=== PATIENT | male | born 1975 | race Caucasian/White ===

== ENCOUNTER 2016-12-04 18:35 | Emergency (ER) | payer SELFPAY ==
[~2016-12-04] VITALS: Ht 165.1 cm; Wt 72.0 kg
[~2016-12-04 18:35] MED LIST: LORA-474 PO; Z.0.NO CURRENT MEDS
[2016-12-04 18:37] VITALS: BP 180/103; PULSE 78; RESP 24; TEMP 97.7; O2SAT 98
[2016-12-04] MEDS ORDERED: SODIUM CHLOR 0.9% 1000 ML INJ 1,000 ML IV SCH (18:50)
[2016-12-04] MEDS ORDERED: MORPHINE SULFATE 4 MG/ML INJ IV PUSH ONE (19:00)
[2016-12-04] MEDS ORDERED: ONDANSETRON HCL 4 MG/2 ML VIAL IVP ONE (19:00)
[2016-12-04 19:19] VITALS: RESP 21; O2SAT 96
--- NOTE | 2016-12-04 19:19 | PD ---
HPI Chief Complaint: Abdominal Pain Time Seen by Provider: 19:16 Travel History International Travel<30 days: No Contact w/Intl Traveler<30days: No Traveled to known affect area: No History of Present Illness HPI 41 yo male that presents to the ED for evaluation of LLQ abdominal pain since 1 hour before coming. Patient states that this happened less than 2 hours ago he denies any chest pain or shortness of breath. Nausea or vomiting. No bowel movement issues. No urinary issues. States that the pain is severe and sharp. Per patient the pain is 8 out of 10. Does not radiate. No history of kidney stones. No history of heavy lifting. No masses. No problems with bowel movements or urine. No allergies to medication. Has not seen anybody for this. No history of surgeries to the abdomen. PFSH Past Surgical History Eye Surgery: Yes (LEFT EYE SURGERY) Social History Alcohol Use: No Tobacco Use: No Substance Use: No Allergies-Medications (Allergen,Severity, Reaction): Coded Allergies: No Known Allergies (Unverified , 11/16/12) Reported Meds & Prescriptions Reported Meds & Active Scripts Active Flomax (Tamsulosin HCl) 0.4 Mg Cap 0.4 Mg PO HS PRN Diclofenac Sodium DR (Diclofenac Sodium) 75 Mg Tabdr 75 Mg PO BID PRN Lortab (Hydrocodone-Acetaminophen) 5-325 Mg Tab 1 Tab PO Q6H PRN Review of Systems Except as stated in HPI: all other systems reviewed are Neg Physical Exam Narrative GENERAL: SKIN: Warm and dry. HEAD: Atraumatic. Normocephalic. EYES: Pupils equal and round. No scleral icterus. No injection or drainage. ENT: No nasal bleeding or discharge. Mucous membranes pink and moist. Tongue is midline. No uvula deviation. NECK: Trachea midline. No JVD. CARDIOVASCULAR: Regular rate and rhythm. No murmurs, S3, S4. RESPIRATORY: No accessory muscle use. Clear to auscultation. Breath sounds equal bilaterally. GASTROINTESTINAL: Abdomen soft, tender with deep palpation on the left lower quadrant especially with deep palpation, nondistended. Hepatic and splenic margins not palpable. MUSCULOSKELETAL: Extremities without clubbing, cyanosis, or edema. No obvious deformities. Full range of motion of the upper and lower extremities bilaterally. 2+ pulses bilaterally. NEUROLOGICAL: Awake and alert. No obvious cranial nerve deficits. Motor grossly within normal limits. Five out of 5 muscle strength in the arms and legs. Normal speech. PSYCHIATRIC: Appropriate mood and affect; insight and judgment normal. Data Data Last Documented VS Vital Signs Date Time Temp Pulse Resp B/P Pulse Ox O2 Delivery O2 Flow Rate FiO2 12/04/16 20:48 20 12/04/16 20:00 100 126/64 99 Room Air 12/04/16 18:37 97.7 Orders Complete Blood Count With Diff (12/04/16 18:50) Comprehensive Metabolic Panel (12/04/16 18:50) Lipase (12/04/16 18:50) Lactic Acid (12/04/16 18:50) Urinalysis - C+S If Indicated (12/04/16 18:50) Ct Abd/Pel W Iv Contrast(Rout) (12/04/16 18:50) Iv Access Insert/Monitor (12/04/16 18:50) Ecg Monitoring (12/04/16 18:50) Oximetry (12/04/16 18:50) Morphine Inj (Morphine Inj) (12/04/16 19:00) Ondansetron Inj (Zofran Inj) (12/04/16 19:00) Sodium Chlor 0.9% 1000 Ml Inj (Ns 1000 M (12/04/16 18:50) Hydromorphone Pf Inj (Dilaudid Pf Inj) (12/04/16 19:45) Ketorolac Inj (Toradol Inj) (12/04/16 19:45) Iohexol 350 Inj (Omnipaque 350 Inj) (12/04/16 20:25) Labs Laboratory Tests Test 12/04/16 12/04/16 19:14 20:44 White Blood Count 14.4 TH/MM3 Red Blood Count 5.63 MIL/MM3 Hemoglobin 17.6 GM/DL Hematocrit 51.1 % Mean Corpuscular Volume 90.7 FL Mean Corpuscular Hemoglobin 31.3 PG Mean Corpuscular Hemoglobin 34.5 % Concent Red Cell Distribution Width 13.0 % Platelet Count 329 TH/MM3 Mean Platelet Volume 9.5 FL Neutrophils (%) (Auto) 59.6 % Lymphocytes (%) (Auto) 31.8 % Monocytes (%) (Auto) 7.2 % Eosinophils (%) (Auto) 0.9 % Basophils (%) (Auto) 0.5 % Neutrophils # (Auto) 8.6 TH/MM3 Lymphocytes # (Auto) 4.6 TH/MM3 Monocytes # (Auto) 1.0 TH/MM3 Eosinophils # (Auto) 0.1 TH/MM3 Basophils # (Auto) 0.1 TH/MM3 CBC Comment DIFF FINAL Differential Comment Sodium Level 142 MEQ/L Potassium Level 4.4 MEQ/L Chloride Level 103 MEQ/L Carbon Dioxide Level 29.8 MEQ/L Anion Gap 9 MEQ/L Blood Urea Nitrogen 14 MG/DL Creatinine 1.06 MG/DL Estimat Glomerular Filtration 78 ML/MIN Rate Random Glucose 111 MG/DL Lactic Acid Level 1.8 mmol/L Calcium Level 9.2 MG/DL Total Bilirubin 0.6 MG/DL Aspartate Amino Transf 40 U/L (AST/SGOT) Alanine Aminotransferase 65 U/L (ALT/SGPT) Alkaline Phosphatase 71 U/L Total Protein 8.4 GM/DL Albumin 4.3 GM/DL Lipase 159 U/L Urine Color LIGHT-YELLOW Urine Turbidity CLEAR Urine pH 6.5 Urine Specific [place] 1.017 Urine Protein NEG mg/dL Urine Glucose (UA) NEG mg/dL Urine Ketones NEG mg/dL Urine Occult Blood NEG Urine Nitrite NEG Urine Bilirubin NEG Urine Urobilinogen LESS THAN 2.0 MG/DL Urine Leukocyte Esterase NEG Urine RBC 2 /hpf Urine WBC LESS THAN 1 /hpf Urine Mucus FEW /lpf Microscopic Urinalysis Comment CULT NOT INDICATED MDM Medical Decision Making Medical Screen Exam Complete: Yes Emergency Medical Condition: Yes Medical Record Reviewed: Yes Interpretation(s) CBC & BMP Diagram 12/04/16 19:14 UA negative LFTs WNL Last Impressions Abdomen/Pelvis CT 12/04/16 1850 Signed Impressions: Service Date/Time: Sunday, December 04, 2016 20:20 - CONCLUSION: 1. 2 mm left ureteropelvic junction stone Luiz Mai MD Differential Diagnosis Acute abdomen versus Abdominal pain versus kidney stone versus diverticulitis versus polynephritis versus herniated versus mass versus perforation Narrative Course 41-year-old male that presents to the ED for evaluation of left lower quadrant abdominal pain. Patient was properly examined and was found to have signs and symptoms consistent with abdominal pain. Labs and imaging ordered. Patient was given IV pain medications and fluids. Labs and imaging showed kidney stone. Other was unremarkable. 2 mm. Patient was pressure. This time patient feels improved. Pain has completely gone. Patient was told that the stone will likely pass on its own. Patient agrees with plan. Patient was given a prescription for Lortab and Flomax as well as diclofenac sodium. Follow with PCP. See ED worsening symptoms. Diagnosis Primary Impression: Kidney stone on left side Patient Instructions: Narcotic given in the ED, General Instructions Departure Forms: Tests/Procedures, Work Release Enter return to work date: December 06, 2016 Additional Instructions: Take medications as prescribed. Follow-up with PCP. See ED for any worsening symptoms. Do not drink or drive while taking pain medication. Apply ice or heat as needed for pain Did not take the Flomax if the stone has passed. Med/Other Pt SpecificInfo: Prescription(s) given Scripts Tamsulosin (Flomax)0.4 Mg Cap0.4 Mg PO HS PRN (Manage Prostate Problems) #15 CAP Ref 0 Prov:Nuvia Rosas MD 12/04/[address] 75 Mg Tabdr75 Mg PO BID PRN (PAIN SCALE 1 TO 10) #20 TAB Prov:Nuvia Rosas MD 12/04/16 Hydrocodone-Acetaminophen (Lortab)5-325 Mg Tab1 Tab PO Q6H PRN (PAIN) #20 TAB Prov:Nuvia Rosas MD 12/04/16 Disposition: 01 DISCHARGE HOME Condition: Stable Wilfredo Phelps December 04, 2016 19:19
[2016-12-04 19:27] LABS: AUTOMATED NEUTROPHIL # 8.6 TH/MM3 (1.8-7.7); BASOPHIL # 0.1 TH/MM3 (0-0.2); BASOPHIL % 0.5 % (0.0-2.0); EOSINOPHIL # 0.1 TH/MM3 (0-0.4); EOSINOPHIL % 0.9 % (0.0-4.0); HEMATOCRIT 51.1 % (39.0-51.0); HEMO FLAGS DIFF FINAL; LYMPH % 31.8 % (9.0-44.0); LYMPHOCYTE # 4.6 TH/MM3 (1.0-4.8); MEAN CELL VOLUME 90.7 FL (80.0-100.0); MEAN CORPUSCULAR HEMOGLOBIN 31.3 PG (27.0-34.0); MEAN CORPUSCULAR HGB CONC 34.5 % (32.0-36.0); MONO % 7.2 % (0.0-8.0); NEUT % 59.6 % (16.0-70.0); PLATELET COUNT 329 TH/MM3 (150-450); RED BLOOD COUNT 5.63 MIL/MM3 (4.50-5.90); WHITE BLOOD COUNT 14.4 TH/MM3 (4.0-11.0)
[2016-12-04] MEDS ORDERED: HYDROmorphone HCL PF 1 MG/ML VIAL IV PUSH ONE (19:45)
[2016-12-04] MEDS ORDERED: KETOROLAC TROMETHAMINE 30 MG/ML (IVP) VIAL IV PUSH ONE (19:45)
[2016-12-04 19:58] LABS: AST (GOT) 40 U/L (15-37); BICARBONATE 29.8 MEQ/L (21.0-32.0); BLOOD UREA NITROGEN 14 MG/DL (7-18); GLOMERULAR FILTRATION RATE 78 ML/MIN (>89)
[2016-12-04 20:00] VITALS: BP 126/64; PULSE 100; RESP 20; O2SAT 99
[2016-12-04] MEDS ORDERED: IOHEXOL 350 MG/ML 10 ML VIAL (for RAD DIAG) IV ONE (20:25)
[2016-12-04 20:41] LABS: ALKALINE PHOSPHATASE 71 U/L (45-117); ALT (GPT) 65 U/L (12-78); ANION GAP 9 MEQ/L (5-15); CHLORIDE 103 MEQ/L (98-107); POTASSIUM 4.4 MEQ/L (3.5-5.1); SODIUM (NA) 142 MEQ/L (136-145); TOTAL BILIRUBIN ADULT 0.6 MG/DL (0.2-1.0)
[2016-12-04 20:57] LABS: BLOOD, URINE NEG (NEG); COMMENT (UR) CULT NOT INDICATED; CULTURE IF INDICATED CULT NOT INDICATED; GLUCOSE,URINE NEG (NEG); KETONE, URINE NEG (NEG); MUCUS URINE FEW /lpf (OCC); NITRITE,URINE NEG (NEG); PH, URINE 6.5 (5.0-8.5); URINE COLOR LIGHT-YELLOW (YELLW/STRAW)
--- NOTE | 2016-12-04 21:02 | RADRPT ---
EXAM DATE/TIME: 12/04/2016 20:20 [facility] COMPARISON: No previous studies available for comparison. INDICATIONS : Left lower quadrant pain and nausea. IV CONTRAST: 80 cc Omnipaque 350 (iohexol) IV ORAL CONTRAST: No oral contrast ingested. RADIATION DOSE: 6.56 CTDIvol (mGy) MEDICAL HISTORY : None SURGICAL HISTORY : None. ENCOUNTER: Initial ACUITY: 1 day PAIN SCALE: 10/10 LOCATION: Left lower quadrant TECHNIQUE: Volumetric scanning of the abdomen and pelvis was performed. Using automated exposure control and ad justment of the mA and/or kV according to patient size, radiation dose was kept as low as reasonably achievable to obtain optimal diagnostic quality images. FINDINGS: Examination of the lung bases demonstrates no abnormality. No pleural fluid is identified. No pulmona ry nodules are present. The liver and spleen are normal in size and no focal defects are identified. The gallbladder and pancreas are unremarkable. No intrahepatic or extrahepatic ductal dilatation is s een. The adrenal glands are unremarkable. The right kidney is unremarkable. There is a 2 mm stone in the left ureter pelvic junction with mild left hydronephrosis. Examination of the pelvis demonstrates no evidence of free fluid or pelvic mass. No abnormally enlarg ed inguinal or retroperitoneal lymph nodes are present. The bladder is unremarkable. CONCLUSION: 1. 2 mm left ureteropelvic junction stone Luiz Mai MD on December 04, 2016 at 20:58 Board Certified Radiologist. This report was verified electronically.
[2016-12-04] MEDS ORDERED: TAMS5CAP PO (21:25)
[2016-12-04] MEDS ORDERED: DICL75TA PO (21:25)
[2016-12-04] MEDS ORDERED: HYDR-3533 PO (21:25)
[2016-12-04 21:52] VITALS: BP 137/68; PULSE 86; RESP 20; O2SAT 98
== END 2016-12-04 21:59 | disposition home or self-care (01) ==
LOC: NEPE 18:35
DX: N20.0 Calculus of kidney (principal)
CPT/HCPCS: 74177; 80053; 81001; 83605; 83690; 85025; 96361; 96374; 96375; 99284; J1170; J1885; J2270; J2405; J7030; Q9967

== ENCOUNTER 2017-11-27 00:47 | Emergency (ER) | payer SELFPAY ==
[~2017-11-27] VITALS: Ht 170.2 cm; Wt 70.0 kg
[~2017-11-27 00:47] MED LIST changes: +DICL75TA PO; +HYDR-3533 PO; -LORA-474 PO; +TAMS5CAP PO; -Z.0.NO CURRENT MEDS
[2017-11-27 00:59] VITALS: BP 163/101; PULSE 93; RESP 18; TEMP 98.1; O2SAT 96
[2017-11-27] MEDS ORDERED: SODIUM CHLOR 0.9% 1000 ML INJ 1,000 ML IV SCH (01:52)
[2017-11-27] MEDS ORDERED: ONDANSETRON ODT 4 MG TAB PO ONE (02:00)
[2017-11-27] MEDS ORDERED: MORPHINE SULFATE 4 MG/ML INJ IV PUSH ONE (02:00)
[2017-11-27] MEDS ORDERED: SODIUM CHLORIDE 0.9% FLUSH 10 ML FLUSH IV FLUSH PRN (02:00)
[2017-11-27] MEDS ORDERED: KETOROLAC TROMETHAMINE 30 MG/ML (IVP) VIAL IVP ONE (02:00)
[2017-11-27 02:09] VITALS: O2SAT 99
[2017-11-27 02:14] LABS: AUTOMATED NEUTROPHIL # 9.5 TH/MM3 (1.8-7.7); BASOPHIL % 0.2 % (0.0-2.0); EOSINOPHIL # 0.1 TH/MM3 (0-0.4); EOSINOPHIL % 0.4 % (0.0-4.0); HEMATOCRIT 46.4 % (39.0-51.0); LYMPH % 18.5 % (9.0-44.0); LYMPHOCYTE # 2.4 TH/MM3 (1.0-4.8); MEAN CELL VOLUME 91.5 FL (80.0-100.0); MEAN CORPUSCULAR HEMOGLOBIN 31.6 PG (27.0-34.0); MEAN CORPUSCULAR HGB CONC 34.5 % (32.0-36.0); MEAN PLATELET VOLUME 8.4 FL (7.0-11.0); MONO % 8.5 % (0.0-8.0); MONOCYTE # 1.1 TH/MM3 (0-0.9); NEUT % 72.4 % (16.0-70.0); PLATELET COUNT 270 TH/MM3 (150-450); RED BLOOD COUNT 5.08 MIL/MM3 (4.50-5.90); RED CELL DISTRIBUTION WIDTH 12.8 % (11.6-17.2); WHITE BLOOD COUNT 13.2 TH/MM3 (4.0-11.0)
[2017-11-27 02:19] VITALS: BP 164/98; PULSE 88; RESP 16; O2SAT 98
--- NOTE | 2017-11-27 02:19 | RADRPT ---
EXAM DATE/TIME: 11/27/2017 01:58 [facility] COMPARISON: CT ABDOMEN & PELVIS W CONTRAST, December 04, 2016, 20:20 INDICATIONS : Right flank pain. ORAL CONTRAST: No oral contrast ingested. RADIATION DOSE: 9.63 CTDIvol (mGy) MEDICAL HISTORY : Hypertension. SURGICAL HISTORY : None. ENCOUNTER: Initial ACUITY: 1 day PAIN SCALE: 6/10 LOCATION: Right flank TECHNIQUE: Volumetric scanning of the abdomen and pelvis was performed. Using automated exposure control and ad justment of the mA and/or kV according to patient size, radiation dose was kept as low as reasonably achievable to obtain optimal diagnostic quality images. DICOM format image data is available electro nically for review and comparison. FINDINGS: LOWER LUNGS: The visualized lower lungs are clear. LIVER: No acute hepatic abnormality demonstrated. CT appearance of the gallbladder within normal limits.. SPLEEN: Normal size without lesion. PANCREAS: Within normal limits. KIDNEYS: 5 x 7 by 8mm stone present of the right ureteropelvic junction and causing mild to moderate hydroneph rosis. Right kidney is swollen and edematous. There are several sub-3 mm nonobstructing stones on bot h sides. There is an unchanged 1 cm cyst of the right mid zone. ADRENAL GLANDS: Within normal limits. VASCULAR: There is no aortic aneurysm. BOWEL/MESENTERY: The stomach, small bowel, and colon demonstrate no acute abnormality. There is no free intraperitone al air or fluid. The appendix is well-visualized and normal. ABDOMINAL WALL: Within normal limits. RETROPERITONEUM: There is no lymphadenopathy. BLADDER: No wall thickening or mass. REPRODUCTIVE: Within normal limits. INGUINAL: There is no lymphadenopathy or hernia. MUSCULOSKELETAL: No acute bony abnormality. Partially sacralized L5 with mild degenerative changes. CONCLUSION: 1. 5 x 7 x 8mm stone of the right ureteropelvic junction causing moderate obstructive uropathy. The s tone can be seen on the initial reservations agent radiograph. Stone to lateral skin distance is approximately 11. 8 cm. 2. Multiple tiny nonobstructing stones in both kidneys. Also a benign-appearing small cyst of the rig ht kidney. Melvin Marte MD on November 27, 2017 at 2:11 Board Certified Radiologist. This report was verified electronically.
[2017-11-27 02:21] LABS: BACTERIA, URINE RARE /hpf; BILIRUBIN, URINE NEG (NEG); BLOOD, URINE LARGE (NEG); GLUCOSE,URINE NEG (NEG); KETONE, URINE NEG (NEG); MUCUS URINE FEW /lpf (OCC); NITRITE,URINE NEG (NEG); URINE COLOR YELLOW (YELLW/STRAW); URINE LEUKOCYTE ESTERASE NEG (NEG)
[2017-11-27 02:22] LABS: AMORPHOUS SEDIMENT, URINE FEW
[2017-11-27 02:27] LABS: PROTHROMBIN TIME - PATIENT 10.4 SEC (9.8-11.6)
[2017-11-27 02:32] LABS: ALKALINE PHOSPHATASE 66 U/L (45-117); TOTAL BILIRUBIN ADULT 0.4 MG/DL (0.2-1.0); TOTAL PROTEIN 7.7 GM/DL (6.4-8.2)
[2017-11-27 02:33] LABS: ALT (GPT) 46 U/L (12-78); AST (GOT) 24 U/L (15-37); BICARBONATE 29.3 MEQ/L (21.0-32.0); BLOOD UREA NITROGEN 16 MG/DL (7-18); CALCIUM 8.6 MG/DL (8.5-10.1); CHLORIDE 104 MEQ/L (98-107); GLOMERULAR FILTRATION RATE 67 ML/MIN (>89); GLUCOSE,RANDOM 108 MG/DL (74-106); SODIUM (NA) 140 MEQ/L (136-145)
[2017-11-27] MEDS ORDERED: ACETAMINOPHEN/HYDROcodone 325 MG/5 MG TAB PO ONE (03:15)
[2017-11-27 03:21] VITALS: BP 151/78; PULSE 84; RESP 16; O2SAT 98
[2017-11-27] MEDS ORDERED: TAMS5CAP PO (04:01)
[2017-11-27] MEDS ORDERED: NORC5TAB PO (04:01)
--- NOTE | 2017-11-27 04:01 | PD ---
HPI Chief Complaint: Abdominal Pain Time Seen by Provider: 01:32 Travel History International Travel<30 days: No Contact w/Intl Traveler<30days: No Traveled to known affect area: No History of Present Illness HPI Patient is a 42 year old male who comes in complaining of RLQ abdominal pain. He says it started early this morning, waking him up from sleep. He says he thinks he has a kidney stone. He took some Ibuprofen for the pain without relief. He says he feels nauseous, but has not vomited. He denies fever or chills. He says he has had increased urination. He has history of kidney stones in the past. Severity is moderate. PFSH Past Medical History Diminished Hearing: No Hypertension: Yes Tetanus Vaccination: Unknown Influenza Vaccination: No Past Surgical History Eye Surgery: Yes (LEFT EYE SURGERY) Social History Alcohol Use: No Tobacco Use: No Substance Use: No Allergies-Medications (Allergen,Severity, Reaction): Coded Allergies: No Known Allergies (Unverified Adverse Reaction, Unknown, 11/27/17) Reported Meds & Prescriptions Reported Meds & Active Scripts Active Flomax (Tamsulosin HCl) 0.4 Mg Cap 0.4 Mg PO HS PRN Diclofenac Sodium DR (Diclofenac Sodium) 75 Mg Tabdr 75 Mg PO BID PRN Lortab (Hydrocodone-Acetaminophen) 5-325 Mg Tab 1 Tab PO Q6H PRN Review of Systems Except as stated in HPI: all other systems reviewed are Neg General / Constitutional: No: Fever, Chills HENT: No: Headaches, Lightheadedness Cardiovascular: No: Chest Pain or Discomfort Respiratory: No: Shortness of Breath Gastrointestinal: Positive: Abdominal Pain Genitourinary: No: Dysuria Skin: No Rash, No Change in Pigmentation Neurologic: No: Weakness, Dizziness Physical Exam Narrative GENERAL: Awake and alert, in mild distress due to pain. SKIN: Focused skin assessment warm/dry. HEAD: Atraumatic. Normocephalic. EYES: Pupils equal and round. No scleral icterus. ENT: No nasal bleeding or discharge. Mucous membranes pink and moist. NECK: Trachea midline. No JVD. CARDIOVASCULAR: Regular rate and rhythm. No murmur appreciated. RESPIRATORY: No accessory muscle use. Clear to auscultation. Breath sounds equal bilaterally. GASTROINTESTINAL: Abdomen soft, nondistended. Tender to palpation of the RLQ, no rebound or guarding. No CVA tenderness. MUSCULOSKELETAL: No obvious deformities. No clubbing. No cyanosis. No edema. NEUROLOGICAL: Awake and alert. No obvious cranial nerve deficits. Motor grossly within normal limits. Normal speech. PSYCHIATRIC: Appropriate mood and affect; insight and judgment normal. Data Data Last Documented VS Vital Signs Date Time Temp Pulse Resp B/P (MAP) Pulse Ox O2 Delivery O2 Flow Rate FiO2 11/27/17 03:21 84 16 151/78 (102) 98 Room Air 11/27/17 00:59 98.1 Orders Orders Complete Blood Count With Diff (11/27/17 01:52) Comprehensive Metabolic Panel (11/27/17 01:52) Prothrombin Time / Inr (Pt) (11/27/17:52) Act Partial Throm Time (Ptt) (11/27/17:52) Urinalysis - C+S If Indicated (11/27/17 01:52) Ct Abd/Pel W/O Iv Contrast (11/27/17 01:52) Iv Access Insert/Monitor (11/27/17 01:52) Ecg Monitoring (11/27/17 01:52) Oximetry (11/27/17 01:52) Morphine Inj (Morphine Inj) (11/27/17 02:00) Sodium Chlor 0.9% 1000 Ml Inj (Ns 1000 M (11/27/17 01:52) Sodium Chloride 0.9% Flush (Ns Flush) (11/27/17 02:00) Ketorolac Inj (Toradol Inj) (11/27/17 02:00) Ondansetron Odt (Zofran Odt) (11/27/17 02:00) Acetamin-Hydrocod 325-5 Mg ([place] 5-325 (11/27/17 03:15) Labs Laboratory Tests Test 11/27/17 02:05 White Blood Count 13.2 TH/MM3 Red Blood Count 5.08 MIL/MM3 Hemoglobin 16.0 GM/DL Hematocrit 46.4 % Mean Corpuscular Volume 91.5 FL Mean Corpuscular Hemoglobin 31.6 PG Mean Corpuscular Hemoglobin Concent 34.5 % Red Cell Distribution Width 12.8 % Platelet Count 270 TH/MM3 Mean Platelet Volume 8.4 FL Neutrophils (%) (Auto) 72.4 % Lymphocytes (%) (Auto) 18.5 % Monocytes (%) (Auto) 8.5 % Eosinophils (%) (Auto) 0.4 % Basophils (%) (Auto) 0.2 % Neutrophils # (Auto) 9.5 TH/MM3 Lymphocytes # (Auto) 2.4 TH/MM3 Monocytes # (Auto) 1.1 TH/MM3 Eosinophils # (Auto) 0.1 TH/MM3 Basophils # (Auto) 0.0 TH/MM3 CBC Comment DIFF FINAL Differential Comment Prothrombin Time 10.4 SEC Prothromb Time International Ratio 1.0 RATIO Activated Partial Thromboplast Time 25.6 SEC Urine Color YELLOW Urine Turbidity HAZY Urine pH 7.0 Urine Specific [place] 1.023 Urine Protein 30 mg/dL Urine Glucose (UA) NEG mg/dL Urine Ketones NEG mg/dL Urine Occult Blood LARGE Urine Nitrite NEG Urine Bilirubin NEG Urine Urobilinogen LESS THAN 2.0 MG/DL Urine Leukocyte Esterase NEG Urine RBC /hpf Urine WBC 6 /hpf Urine Amorphous Sediment FEW Urine Bacteria RARE /hpf Urine Mucus FEW /lpf Microscopic Urinalysis Comment CULT NOT INDICATED Blood Urea Nitrogen 16 MG/DL Creatinine 1.20 MG/DL Random Glucose 108 MG/DL Total Protein 7.7 GM/DL Albumin 4.0 GM/DL Calcium Level 8.6 MG/DL Alkaline Phosphatase 66 U/L Aspartate Amino Transf (AST/SGOT) 24 U/L Alanine Aminotransferase (ALT/SGPT) 46 U/L Total Bilirubin 0.4 MG/DL Sodium Level 140 MEQ/L Potassium Level 3.7 MEQ/L Chloride Level 104 MEQ/L Carbon Dioxide Level 29.3 MEQ/L Anion Gap 7 MEQ/L Estimat Glomerular Filtration Rate 67 ML/MIN [facility] Medical Decision Making Medical Screen Exam Complete: Yes Emergency Medical Condition: Yes Medical Record Reviewed: Yes Differential Diagnosis kidney stone vs UTI vs appendicitis Narrative Course Patient is a 42 year old male who comes in complaining of RLQ abdominal pain. Exams shows tenderness to the RLQ. IV established, labs sent. Labs show Cr of 1.2. CT abdomen/pelvis performed shows a stone at the right UVJ. Last 24 hours Impressions Abdomen/Pelvis CT 11/27/17 0152 Signed Impressions: Service Date/Time: November 01:58 - CONCLUSION: 1. 5 x 7 x 8mm stone of the right ureteropelvic junction causing moderate obstructive uropathy. The stone can be seen on the initial chain carrier radiograph. Stone to lateral skin distance is approximately 11.8 cm. 2. Multiple tiny nonobstructing stones in both kidneys. Also a benign-appearing small cyst of the right kidney. Melvin Marte MD Patient given IVF, morphine, Toradol. He reports improvement of his pain. Advised of results. He is offered admission , but would like to go home. Advised to follow up with urology. Mandatory referral placed. Given prescriptions for Flomax, [place]. Advised to return at any time for any worsening symptoms. Diagnosis Primary Impression: Kidney stone Referrals: Boom Holbrook DO call for appointment Patient Instructions: General Instructions, Kidney Stones (ED) Additional Instructions: Drink plenty of fluids. Follow-up with urology. Take pain medicine as needed. Return to the ED as needed for any worsening symptoms. Scripts Hydrocodone-Acetaminophen ([place]) 5 Mg-325 Mg Tab 1 TAB PO Q6H Y for PAIN, #12 TAB 0 Refills Prov: Nuvia Rosas MD 11/27/17 Tamsulosin (Flomax) 0.4 Mg Cap 0.4 MG PO HS for Manage Prostate Problems, #7 CAP 0 Refills Prov: Nuvia Rosas MD 11/27/17 Disposition: 01 DISCHARGE HOME Condition: Stable Nuvia Rosas MD November 27, 2017 04:01
[2017-12-05] MEDS ORDERED: PERC5TAB12 PO (12:58)
[2017-12-05] MEDS ORDERED: CEPH-459 PO (12:58)
== END 2017-11-27 04:11 | disposition home or self-care (01) ==
LOC: NEPE 00:47
DX: R10.31 Right lower quadrant pain (principal); N20.0 Calculus of kidney; I10 Essential (primary) hypertension; Z87.442 Personal history of urinary calculi
CPT/HCPCS: 74176; 80053; 81001; 85025; 85610; 85730; 96361; 96374; 96375; 99284; J1885; J2270; J7030

== ENCOUNTER 2017-12-02 03:01 | Emergency (ER) | payer SELFPAY ==
[~2017-12-02 03:01] MED LIST changes: +NORC5TAB PO
[2017-12-02 03:05] VITALS: BP 176/83; PULSE 86; RESP 19; TEMP 98.8; O2SAT 94
[2017-12-02] MEDS ORDERED: SODIUM CHLOR 0.9% 1000 ML INJ 1,000 ML IV ONE ×2 (04:00→05:15)
[2017-12-02] MEDS ORDERED: KETOROLAC TROMETHAMINE 30 MG/ML (IVP) VIAL IV PUSH ONE (04:00)
[2017-12-02] MEDS ORDERED: ONDANSETRON ODT 4 MG TAB PO ONE (04:15)
[2017-12-02 04:49] LABS: BILIRUBIN, URINE NEG (NEG); BLOOD, URINE MOD (NEG); GLUCOSE,URINE NEG (NEG); KETONE, URINE NEG (NEG); MUCUS URINE FEW /lpf (OCC); NITRITE,URINE NEG (NEG); URINE COLOR YELLOW (YELLW/STRAW); URINE LEUKOCYTE ESTERASE NEG (NEG)
[2017-12-02 05:10] LABS: BICARBONATE 26.4 MEQ/L (21.0-32.0); CALCIUM 8.8 MG/DL (8.5-10.1); CREATININE 1.69 MG/DL (0.60-1.30)
--- NOTE | 2017-12-02 05:29 | PD ---
HPI Chief Complaint: Flank/Kidney Pain Time Seen by Provider: 03:45 Travel History International Travel<30 days: No Contact w/Intl Traveler<30days: No Traveled to known affect area: No History of Present Illness HPI 42-year-old male presents to the emergency department for increasing right flank pain. Patient was diagnosed 11/27/17 with right proximal ureter ureterolithiasis. Patient had nausea without vomiting. Patient states he has not passed the stone. Patient rates his pain as colicky in nature and intermittent and 5/10 intensity this time but intermittently increases to severe pain. Patient has not followed up with urologist. Patient states symptoms are worsening. Patient denies fever chills. PFSH Past Medical History Narrative Medical Nephrolithiasis, eye surgery; nursing notes reviewed Diminished Hearing: No Hypertension: Yes Kidney Stones: Yes Past Surgical History Eye Surgery: Yes (LEFT EYE SURGERY) Social History Alcohol Use: No Tobacco Use: No Substance Use: No Allergies-Medications (Allergen,Severity, Reaction): Coded Allergies: No Known Allergies (Unverified Adverse Reaction, Unknown, 12/02/17) Reported Meds & Prescriptions Reported Meds & Active Scripts Active Zofran Odt (Ondansetron Odt) 4 Mg Tab 4 Mg SL Q6HR PRN Flomax (Tamsulosin HCl) 0.4 Mg Cap 0.4 Mg PO HS Percocet (Oxycodone-Acetaminophen) 5-325 mg Tab 1 Tab PO Q6H PRN Gary (Hydrocodone-Acetaminophen) 5 Mg-325 Mg Tab 1 Tab PO Q6H PRN Review of Systems Except as stated in HPI: all other systems reviewed are Neg General / Constitutional: No: Fever, Chills HENT: No: Congestion Cardiovascular: No: Chest Pain or Discomfort Respiratory: No: Shortness of Breath Gastrointestinal: Positive: Nausea, No: Vomiting, Abdominal Pain Genitourinary: Positive: Hematuria, Flank Pain Musculoskeletal: No: Myalgias, Arthralgias Skin: No Rash Endocrine: No: Polyuria Hematologic/Lymphatic: No: Lymph Node Enlargement Physical Exam Narrative GENERAL: Well-developed well-nourished uncomfortable appearing male SKIN: Warm and dry. HEAD: Normocephalic. EYES: No scleral icterus. No injection or drainage. NECK: Supple, trachea midline. No JVD or lymphadenopathy. CARDIOVASCULAR: Regular rate and rhythm without murmurs, gallops, or rubs. RESPIRATORY: Breath sounds equal bilaterally. No accessory muscle use. GASTROINTESTINAL: Abdomen soft, non-tender, nondistended. MUSCULOSKELETAL: No cyanosis, or edema. BACK: Nontender without obvious deformity. Right side CVA tenderness. Data Data Last Documented VS Vital Signs Date Time Temp Pulse Resp B/P (MAP) Pulse Ox O2 Delivery O2 Flow Rate FiO2 12/02/17 03:05 98.8 86 19 176/83 (114) 94 Orders Orders Urinalysis - C+S If Indicated (12/02/17 03:45) Basic Metabolic Panel (Bmp) (12/02/17 03:46) Sodium Chlor 0.9% 1000 Ml Inj (Ns 1000 M (12/02/17 04:00) Ketorolac Inj (Toradol Inj) (12/02/17 04:00) Ondansetron Odt (Zofran Odt) (12/02/17 04:15) Sodium Chlor 0.9% 1000 Ml Inj (Ns 1000 M (12/02/17 05:15) Ct Abd/Pel W/O Iv Contrast (12/02/17 ) Ed Discharge Order (12/02/17 06:05) Mandatory Outpatient Referral (12/02/17 06:05) Labs Laboratory Tests Test 12/02/17 04:10 Urine Color YELLOW Urine Turbidity CLEAR Urine pH 6.0 Urine Specific [place] 1.025 Urine Protein TRACE mg/dL Urine Glucose (UA) NEG mg/dL Urine Ketones NEG mg/dL Urine Occult Blood MOD Urine Nitrite NEG Urine Bilirubin NEG Urine Urobilinogen LESS THAN 2.0 MG/DL Urine Leukocyte Esterase NEG Urine RBC 2 /hpf Urine WBC 1 /hpf Urine Mucus FEW /lpf Microscopic Urinalysis Comment CULT NOT INDICATED Blood Urea Nitrogen 20 MG/DL Creatinine 1.69 MG/DL Random Glucose 106 MG/DL Calcium Level 8.8 MG/DL Sodium Level 138 MEQ/L Potassium Level 3.7 MEQ/L Chloride Level 103 MEQ/L Carbon Dioxide Level 26.4 MEQ/L Anion Gap 9 MEQ/L Estimat Glomerular Filtration Rate 45 ML/MIN MDM Medical Decision Making Medical Screen Exam Complete: Yes Emergency Medical Condition: Yes Medical Record Reviewed: Yes Interpretation(s) CBC & BMP Diagram 12/02/17 04:10 Calcium Level 8.8 Vital Signs Date Time Temp Pulse Resp B/P (MAP) Pulse Ox O2 Delivery O2 Flow Rate FiO2 12/02/17 03:05 98.8 86 19 176/83 (114) 94 UA: Moderate hematuria CT a/p: FINDINGS: Lung bases demonstrate minimal scarring or atelectasis. No acute findings in the lower, spleen, adrenals or pancreas. There is an approximately 6.5 mm calculus in the proximal right ureter mild right-sided hydronephrosis and obstructive uropathy. 2 tiny 1 mm calculi present in the left kidney. No free fluid. No bowel obstruction. No adenopathy. Colonic diverticula noted. No acute bony abnormalities. CONCLUSION: 1. Approximately 6.5 mm calculus in the proximal right ureter with mild right hydronephrosis and obstructive uropathy. Tiny nonobstructing left renal calculi. Frank Colunga MD on December 02, 2017 at 6:02 Board Certified Radiologist. This report was verified electronically. Differential Diagnosis Hydronephrosis obstructive uropathy renal insufficiency UTI Narrative Course Urine specimen collected and BMP ordered BMP shows worsening renal function patient with persistent but lessened hematuria Discussed with patient observation admission with urology consult patient wants repeat CT; call placed to urology --- per Dr. Falcon patient is to see him in the office today and he will schedule for outpatient lithotripsy on Friday Patient informed of plan for urologist to see him on Friday/today 12/02/17 in the office with plan for lithotripsy to be scheduled for 12/03/17 patient is agreeable with this will be discharged with prescription for nausea vomiting medicine and pain medication. Patient is clinically improved and stable for outpatient management Physician Communication Physician Communication Discussed with Dr. Sawant patient is to see him in the office on Friday, with plan for lithotripsy on 12/03/17 Diagnosis Primary Impression: Calcium ureterolithiasis Additional Impressions: Renal insufficiency Renal colic on right side Referrals: [place] Falcon MD 1 day Patient Instructions: General Instructions Additional Instructions: Increase fluid hydration Strain urine Follow-up with Dr. Falcon/urologist 1 day Take medication as prescribed as needed Increase fluid hydration Return to the emergency department for any concerns or change in the Med/Other Pt SpecificInfo: Prescription(s) given Scripts Ondansetron Odt (Zofran Odt) 4 Mg Tab 4 MG SL Q6HR Y for Nausea/Vomiting, #10 TAB 0 Refills Prov: Sparkle Marsh MD 12/02/17 Tamsulosin (Flomax) 0.4 Mg Cap 0.4 MG PO HS for Manage Prostate Problems, #7 CAP 0 Refills Prov: Sparkle Marsh MD 12/02/17 Oxycodone-Acetaminophen (Percocet) 5-325 mg Tab 1 TAB PO Q6H Y for PAIN, #7 TAB 0 Refills Prov: Sparkle Marsh MD 12/02/17 Disposition: 01 DISCHARGE HOME Condition: Stable Sparkle Marsh MD December 02, 2017 05:29
--- NOTE | 2017-12-02 06:09 | RADRPT ---
EXAM DATE/TIME: 12/02/2017 05:31 [facility] COMPARISON: No previous studies available for comparison. INDICATIONS : Flank pain. ORAL CONTRAST: No oral contrast ingested. RADIATION DOSE: 9.96 CTDIvol (mGy) MEDICAL HISTORY : Renal calculi. SURGICAL HISTORY : None. ENCOUNTER: Initial ACUITY: 1 day PAIN SCALE: 9/10 LOCATION: flank TECHNIQUE: Volumetric scanning of the abdomen and pelvis was performed. Using automated exposure control and ad justment of the mA and/or kV according to patient size, radiation dose was kept as low as reasonably achievable to obtain optimal diagnostic quality images. DICOM format image data is available electro nically for review and comparison. FINDINGS: Lung bases demonstrate minimal scarring or atelectasis. No acute findings in the lower, spleen, adrenals or pancreas. There is an approximately 6.5 mm calculus in the proximal right ureter mild right-sided hydronephrosi s and obstructive uropathy. 2 tiny 1 mm calculi present in the left kidney. No free fluid. No bowel obstruction. No adenopathy. Colonic diverticula noted. No acute bony abnormal ities. CONCLUSION: 1. Approximately 6.5 mm calculus in the proximal right ureter with mild right hydronephrosis and obst ructive uropathy. Tiny nonobstructing left renal calculi. Frank Colunga MD on December 02, 2017 at 6:02 Board Certified Radiologist. This report was verified electronically.
[2017-12-02] MEDS ORDERED: TAMS5CAP PO (06:10)
[2017-12-02] MEDS ORDERED: PERC5TAB12 PO (06:10)
[2017-12-02] MEDS ORDERED: ZOFR4TAB3 SL (06:10)
[2017-12-05] MEDS ORDERED: CEPH-459 PO (12:58)
[2017-12-05] MEDS ORDERED: PERC5TAB12 PO (12:58)
== END 2017-12-02 06:36 | disposition home or self-care (01) ==
LOC: NEPC 03:01
DX: N13.2 Hydronephrosis with renal and ureteral calculous obstruction (principal)
CPT/HCPCS: 74176; 80048; 81001; 96361; 96374; 99284; J1885; J7030

== ENCOUNTER → 2017-12-05 | Day surgery (SDC) | END | disposition home or self-care (01) | DX: N20.1 Calculus of ureter (principal); I10 Essential (primary) hypertension | CPT/HCPCS: 00910; 52332; 74420; C1769; J0131; J0690; J2250; J3010; J7120; Q9967 ==